=== PATIENT | female | born 1980 | race Caucasian/White ===

== ENCOUNTER 2020-03-31 10:13 | Day surgery (SDC) | payer MEDICAID, OTHER ==
[~2020-03-31] VITALS: Ht 167.6 cm; Wt 86.2 kg
[2020-03-31] MEDS ORDERED: LIDOCAINE 1% 500 MG/50 ML VIAL ONE (10:43)
[2020-03-31] MEDS ORDERED: ceFAZolin 1,000 MG VIAL ONE (10:43)
[2020-03-31] MEDS ORDERED: BUPIVACAINE-MPF/EPI 0.25% 30 ML VIAL INJ ONE (10:43)
[2020-03-31] MEDS ORDERED: CLINDAMYCIN 600 MG in DEXTROSE 5% 50 ML IV SCH (11:00)
[2020-03-31] MEDS ORDERED: PROPOFOL 200 MG/20 ML VIAL IV ONE (11:15)
[2020-03-31] MEDS ORDERED: fentaNYL 0.05 MG/ML VIAL ONE (11:15)
[2020-03-31] MEDS ORDERED: MIDAZOLAM 2 MG/2 ML VIAL ONE (11:15)
[2020-03-31] MEDS ORDERED: LACTATED RINGERS 1,000 ML IV SCH (12:01)
[2020-03-31] MEDS ORDERED: HYDROmorphone 1 MG/ML AMP IVP PRN ×2 (12:05→13:05)
[2020-03-31] MEDS ORDERED: MEPERIDINE 25 MG/ML SYR IVP PRN (12:05)
[2020-03-31] MEDS ORDERED: diphenhydrAMINE 50 MG/ML VIAL IVP PRN (12:05)
[2020-03-31] MEDS ORDERED: ONDANSETRON 4 MG/2 ML VIAL IVP PRN (12:05)
[2020-03-31] MEDS ORDERED: ACETAMINOPHEN 325 MG TAB PO PRN (13:05)
[2020-03-31] MEDS ORDERED: MORPHINE SULFATE 2 MG/ML SYR IVP PRN (13:05)
[2020-03-31] MEDS ORDERED: ONDANSETRON 4 MG/2 ML VIAL IV PRN (13:05)
[2020-03-31] MEDS ORDERED: MORPHINE SULFATE 4 MG/ML SYR IV PRN (13:05)
[2020-03-31] MEDS ORDERED: HYDROcodone/APAP 5/325 MG 1 TAB TAB PO PRN (13:05)
== END 2020-03-31 14:10 | disposition home or self-care (01) ==
LOC: MMU 10:13 → MDS 10:13
PROVIDERS: ATTEND Surgery
DX: C50.912 Malignant neoplasm of unspecified site of left female breast (principal); C50.411 Malignant neoplasm of upper-outer quadrant of right female breast; E66.9 Obesity, unspecified; Z88.0 Allergy status to penicillin; Z72.89 Other problems related to lifestyle; Z68.30 Body mass index [BMI] 30.0-30.9, adult; C77.3 Secondary and unspecified malignant neoplasm of axilla and upper limb lymph nodes; N63.10 Unspecified lump in the right breast, unspecified quadrant
CPT/HCPCS: 36415; 36561; 71045; 76937; 77001; 86886; 86900; 86901; C1788; J0690; J1644; J2001; J2250; J2704; J3010; J3490; J7030; J7060; J7120; Q0092